=== PATIENT | female | born 1945 | race Caucasian/White ===

== ENCOUNTER 2018-09-28 18:48 | Observation (INO) | payer OTHER ==
--- NOTE | 2018-09-28 20:20 | RAD REPORT ---
EXAM DESCRIPTION: CT - Head Brain Wo Cont - 09/28/2018 8:14 pm CLINICAL HISTORY: Dizziness;Declining state Headache, drowsiness COMPARISON: No comparisons TECHNIQUE: All CT scans are performed using dose optimization technique as appropriate and may inclu de automated exposure control or mA/KV adjustment according to patient size. FINDINGS: No intracranial hemorrhage, hydrocephalus or extra-axial fluid collection.Moderate general ized brain atrophy is present with moderate periventricular and deep white matter chronic microvascul ar ischemic changes.No areas of brain edema or evidence of midline shift. The paranasal sinuses and mastoids are clear. The calvarium is intact. IMPRESSION: No acute intracranial abnormality.
--- NOTE | 2018-09-28 20:27 | RAD REPORT ---
EXAM DESCRIPTION: RAD - Chest Single View - 09/28/2018 8:21 pm CLINICAL HISTORY: COUGH Chest pain. COMPARISON: No comparisons FINDINGS: Portable technique limits examination quality. The lungs are emphysematous but grossly clear. The heart is normal in size. No displaced fractures.Ce rvical hardware plate is noted. IMPRESSION: No acute intrathoracic process suspected.
[2018-09-28 20:49] LABS: Absolute Lymphocytes (CBC) 2.2 K/uL (0.7-4.9); Absolute Monocytes 0.6 K/uL (0.1-1.3); Absolute Neutrophil 7.5 K/uL (1.8-8.0); Basophils % 1.1 % (0-1.3); Eosinophils % 1.4 % (0-4.4); Hematocrit 42.8 % (36.0-45.0); Lymphocytes % 20.9 % (15.3-44.8); MPV 8.6 fL (7.6-11.3); RBC Red Blood Cell Count 4.99 M/uL (3.86-4.86)
[2018-09-28 20:50] LABS: Protime INR 1.02
[2018-09-28] MEDS ORDERED: FOLIC ACID 5 MG/ML VIAL ONE (20:52)
[2018-09-28] MEDS ORDERED: NA CHLORIDE 0.9% 500 ML ONE (20:52)
[2018-09-28 21:05] LABS: ALT/SGPT 23 U/L (12-78); AST/SGOT 21 U/L (15-37); Albumin 4.2 g/dL (3.4-5.0); Alkaline Phosphatase 176 U/L (45-117); BUN Blood Urea Nitrogen 24 mg/dL (7-18); Bicarbonate 27 mmol/L (21-32); Bilirubin Direct 0.1 mg/dL (0-0.2); Bilirubin Total 0.5 mg/dL (0.2-1.0); Glucose Level 99 mg/dL (74-106); Magnesium 2.3 mg/dL (1.8-2.4); NT PRO-BNP 84 pg/mL (<450); Potassium 3.7 mmol/L (3.5-5.1); Protein, Total 8.4 g/dL (6.4-8.2); Sodium Level 138 mmol/L (136-145); Troponin (Emerg Dept Use Only) < 0.02 ng/mL (0.0-0.045)
--- NOTE | 2018-09-28 21:34 | EDPHYS ---
Physician Documentation [facility] Name: Chana Charlton Age: 73 yrs Sex: Female : 1945 Arrival Date: 09/28/2018 Time: 19:01 Bed 4 Private MD: ED Physician Musa Irene HPI: 09/28 20:01 This 73 yrs old Female presents to ER via EMS with complaints of ams, stewart confused. 20:01 The patient presents with confusion. Onset: The symptoms/episode began/occurred 2 stewart day(s) ago. Possible causes: CVA or TIA, low blood sugar, unknown. Associated signs and symptoms: The patient has no apparent associated signs or symptoms. Current symptoms: In the emergency department the patient's symptoms have improved, mildly. Historical: - Allergies: 19:21 PENICILLINS; iw - Home Meds: 19:21 None [Active]; iw - PMHx: 19:21 None; iw - PSHx: 19:21 Appendectomy; colon resection (ulcers); iw - Immunization history:: Adult Immunizations not up to date. - Social history:: Smoking status: Patient/guardian denies using tobacco. - Ebola Screening: : Patient negative for fever greater than or equal to 101.5 degrees Fahrenheit, and additional compatible Ebola Virus Disease symptoms Patient denies exposure to infectious person Patient denies travel to an Ebola-affected area in the 21 days before illness onset No symptoms or risks identified at this time. - Family history:: not pertinent. ROS: 20:01 Constitutional: Negative for fever, chills, and weight loss, Eyes: Negative for injury, stewart pain, redness, and discharge, ENT: Negative for injury, pain, and discharge, Neck: Negative for injury, pain, and swelling, Cardiovascular: Negative for chest pain, palpitations, and edema, Respiratory: Negative for shortness of breath, cough, wheezing, and pleuritic chest pain, Abdomen/GI: Negative for abdominal pain, nausea, vomiting, diarrhea, and constipation, Back: Negative for injury and pain, : Negative for injury, bleeding, discharge, and swelling, MS/Extremity: Negative for injury and deformity, Skin: Negative for injury, rash, and discoloration, Psych: Negative for depression, anxiety, suicide ideation, homicidal ideation, and hallucinations, Allergy/Immunology: Negative for hives, rash, and allergies, Endocrine: Negative for neck swelling, polydipsia, polyuria, polyphagia, and marked weight changes, Hematologic/Lymphatic: Negative for swollen nodes, abnormal bleeding, and unusual bruising. 20:01 Neuro: Positive for altered mental status, weakness. Exam: 20:01 Constitutional: This is a well developed, well nourished patient who is awake, alert, stewart and in no acute distress. Head/Face: Normocephalic, atraumatic. Eyes: Pupils equal round and reactive to light, extra-ocular motions intact. Lids and lashes normal. Conjunctiva and sclera are non-icteric and not injected. Cornea within normal limits. Periorbital areas with no swelling, redness, or edema. ENT: Nares patent. No nasal discharge, no septal abnormalities noted. Tympanic membranes are normal and external auditory canals are clear. Oropharynx with no redness, swelling, or masses, exudates, or evidence of obstruction, uvula midline. Mucous membranes moist. Neck: Trachea midline, no thyromegaly or masses palpated, and no cervical lymphadenopathy. Supple, full range of motion without nuchal rigidity, or vertebral point tenderness. No Meningismus. Chest/axilla: Normal chest wall appearance and motion. Nontender with no deformity. No lesions are appreciated. Cardiovascular: Regular rate and rhythm with a normal S1 and S2. No gallops, murmurs, or rubs. Normal PMI, no JVD. No pulse deficits. Respiratory: Lungs have equal breath sounds bilaterally, clear to auscultation and percussion. No rales, rhonchi or wheezes noted. No increased work of breathing, no retractions or nasal flaring. Abdomen/GI: Soft, non-tender, with normal bowel sounds. No distension or tympany. No guarding or rebound. No evidence of tenderness throughout. Back: No spinal tenderness. No costovertebral tenderness. Full range of motion. Female : Normal external genitalia. Skin: Warm, dry with normal turgor. Normal color with no rashes, no lesions, and no evidence of cellulitis. MS/ Extremity: Pulses equal, no cyanosis. Neurovascular intact. Full, normal range of motion. Neuro: Awake and alert, GCS 15, oriented to person, place, time, and situation. Cranial nerves II-XII grossly intact. Motor strength 5/5 in all extremities. Sensory grossly intact. Cerebellar exam normal. Normal gait. Psych: Awake, alert, with orientation to person, place and time. Behavior, mood, and affect are within normal limits. Vital Signs: 19:21 BP 188 / 83; Pulse 67; Resp 16; Temp 97.6(TE); Pulse Ox 100% on R/A; Pain 0/10; iw 20:20 BP 184 / 71; Pulse 60; Resp 18; Pulse Ox 100% on R/A; aj1 21:20 BP 171 / 91; Pulse 57; Resp 18; Pulse Ox 100% on R/A; aj1 22:17 BP 182 / 72; Pulse 56; Resp 16; Pulse Ox 100% on R/A; aj1 22:32 BP 185 / 72; Pulse 59; Resp 17; Temp 97.2(O); Pulse Ox 100% on R/A; Pain 0/10; ed1 NIH Stroke Scale Scores: 20:01 NIHSS Score: 0 stewart MDM: 19:32 Patient medically screened. [facility] 20:05 Data reviewed: vital signs, nurses notes, lab test result(s), EKG, radiologic studies, [facility] CT scan, plain films. 09/28 20:01 Order name: Basic Metabolic Panel [facility] 09/28 20:01 Order name: CBC with Diff [facility] 09/28 20:01 Order name: LFT's [facility] 09/28 20:01 Order name: Magnesium; Complete Time: 21:19 [facility] 09/28 20:01 Order name: NT PRO-BNP; Complete Time: 21:19 [facility] 09/28 20:01 Order name: PT-INR; Complete Time: 21:19 [facility] 09/28 20:01 Order name: Troponin (emerg Dept Use Only); Complete Time: 21:19 [facility] 09/28 20:01 Order name: XRAY Chest (1 view); Complete Time: 21:19 [facility] 09/28 20:01 Order name: CT Head Brain wo Cont; Complete Time: 21:19 [facility] 09/28 20:01 Order name: Urine Culture [facility] 09/28 20:01 Order name: Basic Metabolic Panel; Complete Time: 21:19 EDMS 09/28 20:01 Order name: CBC with Automated Diff; Complete Time: 21:19 EDHI 09/28 20:01 Order name: Liver (Hepatic) Function; Complete Time: 21:19 EDMS 09/28 22:03 Order name: Urine Dipstick--Ancillary (enter results) 2 09/28 20:01 Order name: EKG; Complete Time: 20:02 [facility] 09/28 20:01 Order name: Cardiac monitoring; Complete Time: 20:37 [facility] 09/28 20:01 Order name: EKG - Nurse/Tech; Complete Time: 21:26 [facility] 09/28 20:01 Order name: IV Saline Lock; Complete Time: 20:38 [facility] 09/28 20:01 Order name: Labs collected and sent; Complete Time: 20:38 [facility] 09/28 20:01 Order name: O2 Per Protocol; Complete Time: 20:38 [facility] 09/28 20:01 Order name: O2 Sat Monitoring; Complete Time: 20:38 [facility] Administered Medications: 20:42 Drug: NS 0.9% 500 ml Route: IV; Rate: bolus; Site: left antecubital; aj1 22:19 Follow up: IV Status: Completed infusion; IV Intake: 500ml aj 20:43 Drug: foLIC Acid 1 mg Route: IVPB; Site: left antecubital; aj1 22:19 Follow up: IV Status: Completed infusion aj1 21:29 Drug: Aspirin 162 mg Route: PO; aj1 22:19 Follow up: Response: No adverse reaction aj Disposition: 09/28/18 21:33 Hospitalization ordered by Jonathan Chadwick for Observation. Preliminary diagnosis are Altered mental status, unspecified, Dementia in other diseases classified elsewhere. - Bed requested for Telemetry/MedSurg (observation). - Status is Observation. ed1 - Condition is Stable. - Problem is new. - Symptoms have improved. UTI on Admission? No NIH Stroke Scale - NIH Stroke Score Date: 09/28/2018 Time: 20:01 Total Score = 0 1a. Level of Consciousness (LOC) - 0(Alert) 1b. Level of Consciousness (LOC) (Year \T\ Age) - 0(Both) 1c. LOC Commands (Open \T\ Closes Eyes/Oceanic Sciences Professor) - 0(Both) 2. Best Gaze (Lateral Gaze Paresis) - 0(Normal) 3. Visual Field Loss - 0(No visual loss) 4. Facial Palsy - 0(Normal) 5a. Left Arm: Motor (10-second hold) - 0(No drift) 5b. Right Arm: Motor (10-second hold) - 0(No drift) 6a. Left Leg: Motor (5-second hold - always test supine) - 0(No drift) 6b. Right Leg: Motor (5-second hold - always test supine) - 0(No drift) 7. Limb Ataxia (finger/nose \T\ heel/chand - test with eyes open) - 0(Absent) 8. Sensory Loss (pinprick arms/legs/face) - 0(Normal) 9. Best Language: Aphasia (description/naming/reading) - 0(No aphasia) 10. Dysarthria (speech clarity - read or repeat words) - 0(Normal) 11. Extinction and Inattention (visual/tactile/auditory/spatial/personal) - 0(No abnormality) Initials: stewart Signatures: Dispatcher [employer] EDMS Kita Ryan RN RN aj1 Musa Irene MD MD cha Williams, Irene, RN RN iw Magi Dai RN RN ed1 Cha Glover RN RN cg Corrections: (The following items were deleted from the chart) 22:11 21:33 Hospitalization Ordered by Jonathan Chadwick MD for Observation. Preliminary stewart diagnosis is Altered mental status, unspecified. Bed requested for Telemetry/MedSurg (observation). Status is Observation. Condition is Stable. Problem is new. Symptoms have improved. UTI on Admission? No. stewart 22:29 22:11 09/28/2018 21:33 Hospitalization Ordered by Jonathan Chadwick MD for cg Observation. Preliminary diagnosis is Altered mental status, unspecified; Dementia in other diseases classified elsewhere. Bed requested for Telemetry/MedSurg (observation). Status is Observation. Condition is Stable. Problem is new. Symptoms have improved. UTI on Admission? No. stewart 23:16 22:29 09/28/2018 21:33 Hospitalization Ordered by Jonathan Chadwick MD for ed1 Observation. Preliminary diagnosis is Altered mental status, unspecified; Dementia in other diseases classified elsewhere. Bed requested for Telemetry/MedSurg (observation). Status is Observation. Condition is Stable. Problem is new. Symptoms have improved. UTI on Admission? No. cg
--- NOTE | 2018-09-28 21:34 | ER ---
Nurse's Notes [facility] Name: Chana Charlton Age: 73 yrs Sex: Female : 1945 Arrival Date: 09/28/2018 Time: 19:01 Bed 4 Private MD: Diagnosis: Altered mental status, unspecified;Dementia in other diseases classified elsewhere Presentation: 09/28 19:14 Presenting complaint: EMS states: pt was found to be lost in [place], pt thought she iw was driving herself to the vet clinic to take her dogs to get shots, pt was confused about what year it was and tried to enter [address] office because she thought it was the vet clinic. Pt states she lives in [place], [place], with her 2 dogs and cat, was taking her dogs to the vet and it was closed so she thought she could drive over to the next town and find an open clinic, pt states she has one daughter named Katelynn Irizarry , her PCP is Dr. Velázquez in [facility] , daughter and PCP have been contacted by Mental Health deputy, no response from either. Pt is A\T\OX 2 (person and place) pt confused about time. Transition of care: patient was not received from another setting of care. Onset of symptoms was September 28, 2018. Risk Assessment: Do you want to hurt yourself or someone else? Patient reports no desire to harm self or others. Initial Sepsis Screen: Does the patient meet any 2 criteria? No. Patient's initial sepsis screen is negative. Does the patient have a suspected source of infection? No. Patient's initial sepsis screen is negative. Care prior to arrival: None. 19:14 Method Of Arrival: EMS: [facility] iw 19:14 Acuity: STEF 3 iw Historical: - Allergies: 19:21 PENICILLINS; iw - Home Meds: 19:21 None [Active]; iw - PMHx: 19:21 None; iw - PSHx: 19:21 Appendectomy; colon resection (ulcers); iw - Immunization history:: Adult Immunizations not up to date. - Social history:: Smoking status: Patient/guardian denies using tobacco. - Ebola Screening: : Patient negative for fever greater than or equal to 101.5 degrees Fahrenheit, and additional compatible Ebola Virus Disease symptoms Patient denies exposure to infectious person Patient denies travel to an Ebola-affected area in the 21 days before illness onset No symptoms or risks identified at this time. - Family history:: not pertinent. Screenin:18 Abuse screen: Denies threats or abuse. Denies injuries from another. Nutritional aj1 screening: No deficits noted. Tuberculosis screening: No symptoms or risk factors identified. 22:33 Fall Risk None identified. ed1 Assessment: 19:18 General: Appears in no apparent distress. comfortable, Behavior is calm, cooperative, aj1 appropriate for age. Pain: Denies pain. Neuro: Level of Consciousness is awake, alert, obeys commands, Oriented to person, place, time, situation, Patient states that she is not sure what year it is, but is able to tell me that Nasir Medina is president. Calciner Operator Helper are equal bilaterally Moves all extremities. Full function Gait is steady, Speech is normal, Facial symmetry appears normal. Cardiovascular: Patient's skin is warm and dry. Respiratory: Airway is patent Respiratory effort is even, unlabored, Respiratory pattern is regular, symmetrical. GI: No signs and/or symptoms were reported involving the gastrointestinal system. : No signs and/or symptoms were reported regarding the genitourinary system. EENT: No signs and/or symptoms were reported regarding the EENT system. Derm: No signs and/or symptoms reported regarding the dermatologic system. Skin is pink, warm \T\ dry. normal. Musculoskeletal: No signs and/or symptoms reported regarding the musculoskeletal system. Circulation, motion, and sensation intact. 20:15 Reassessment: Patient appears in no apparent distress at this time. No changes from aj1 previously documented assessment. Patient and/or family updated on plan of care and expected duration. Pain level reassessed. 21:15 Reassessment: Patient and/or family updated on plan of care and expected duration. Pain aj1 level reassessed. General: Appears in no apparent distress. comfortable, Behavior is calm, cooperative, appropriate for age. Pain: Denies pain. Neuro: Level of Consciousness is awake, alert, obeys commands, Oriented to person, place, situation, Moves all extremities. Full function Speech is normal. Cardiovascular: Patient's skin is warm and dry. Respiratory: Airway is patent Respiratory effort is even, unlabored, Respiratory pattern is regular, symmetrical. Derm: No signs and/or symptoms reported regarding the dermatologic system. Skin is pink, warm \T\ dry. normal. Musculoskeletal: No signs and/or symptoms reported regarding the musculoskeletal system. Circulation, motion, and sensation intact. 22:16 Reassessment: Patient appears in no apparent distress at this time. No changes from aj1 previously documented assessment. Patient and/or family updated on plan of care and expected duration. Pain level reassessed. 22:32 Reassessment: Patient appears in no apparent distress at this time. Patient and/or ed1 family updated on plan of care and expected duration. Pain level reassessed. Patient denies pain at this time. Neuro: Level of Consciousness is awake, alert, obeys commands, Oriented to person, situation. Respiratory: Airway is patent Respiratory effort is even, unlabored, Respiratory pattern is regular, symmetrical. 22:34 General: Spoke with patients daughter Katelynn Irizarry on the phone. Contact number ed1 . She stated that the patient has dementia and has become increasingly confused over the past few weeks. Pt has wondered from home but has never traveled this far.. Vital Signs: 19:21 BP 188 / 83; Pulse 67; Resp 16; Temp 97.6(TE); Pulse Ox 100% on R/A; Pain 0/10; iw 20:20 BP 184 / 71; Pulse 60; Resp 18; Pulse Ox 100% on R/A; aj1 21:20 BP 171 / 91; Pulse 57; Resp 18; Pulse Ox 100% on R/A; aj1 22:17 BP 182 / 72; Pulse 56; Resp 16; Pulse Ox 100% on R/A; aj1 22:32 BP 185 / 72; Pulse 59; Resp 17; Temp 97.2(O); Pulse Ox 100% on R/A; Pain 0/10; ed1 NIH Stroke Scale Scores: 20:01 NIHSS Score: 0 stewart ED Course: 19:01 Patient arrived in ED. bb 19:18 Kita Ryan, RN is Primary Nurse. aj1 19:18 Patient has correct armband on for positive identification. Bed in low position. Call aj1 light in reach. Side rails up X 1. 19:18 No provider procedures requiring assistance completed. aj1 19:20 Triage completed. iw 19:21 Arm band placed on. iw 19:32 Musa Irene MD is Attending Physician. stewart 20:15 CT Head Brain wo Cont In Process Unspecified. EDMS 20:22 XRAY Chest (1 view) In Process Unspecified. EDMS 21:24 Jonathan Chadwick MD is Hospitalizing Provider. stewart 23:16 Patient admitted, IV remains in place. intact, No redness/swelling at site. ed1 Administered Medications: 20:42 Drug: NS 0.9% 500 ml Route: IV; Rate: bolus; Site: left antecubital; aj1 22:19 Follow up: IV Status: Completed infusion; IV Intake: 500ml aj1 20:43 Drug: foLIC Acid 1 mg Route: IVPB; Site: left antecubital; aj1 22:19 Follow up: IV Status: Completed infusion aj1 21:29 Drug: Aspirin 162 mg Route: PO; aj1 22:19 Follow up: Response: No adverse reaction aj1 Intake: 22:19 IV: 500ml; Total: 500ml. aj1 Outcome: 21:33 Decision to Hospitalize by Provider. stewart 23:16 Admitted to Tele accompanied by tech, via wheelchair, room 404, with chart, Report ed1 called to KENYA Cha 23:16 Condition: good 23:16 Discharge instructions given to patient, family, Instructed on the need for admit, Demonstrated understanding of instructions. 23:16 Patient left the ED. ed1 NIH Stroke Scale - NIH Stroke Score Date: 09/28/2018 Time: 20:01 Total Score = 0 1a. Level of Consciousness (LOC) - 0(Alert) 1b. Level of Consciousness (LOC) (Year \T\ Age) - 0(Both) 1c. LOC Commands (Open \T\ Closes Eyes/Gas Turbine Mechanic) - 0(Both) 2. Best Gaze (Lateral Gaze Paresis) - 0(Normal) 3. Visual Field Loss - 0(No visual loss) 4. Facial Palsy - 0(Normal) 5a. Left Arm: Motor (10-second hold) - 0(No drift) 5b. Right Arm: Motor (10-second hold) - 0(No drift) 6a. Left Leg: Motor (5-second hold - always test supine) - 0(No drift) 6b. Right Leg: Motor (5-second hold - always test supine) - 0(No drift) 7. Limb Ataxia (finger/nose \T\ heel/chand - test with eyes open) - 0(Absent) 8. Sensory Loss (pinprick arms/legs/face) - 0(Normal) 9. Best Language: Aphasia (description/naming/reading) - 0(No aphasia) 10. Dysarthria (speech clarity - read or repeat words) - 0(Normal) 11. Extinction and Inattention (visual/tactile/auditory/spatial/personal) - 0(No abnormality) Initials: stewart Signatures: Dispatcher [employer] EDMS Kita Ryan RN RN aj1 Musa Irene MD MD cha Ballard, Brenda, RN RN Jennie Olmedo RN RN iw Riggs, Erika, RN RN ed1 Corrections: (The following items were deleted from the chart) 20:16 19:18 Neuro: Level of Consciousness is awake, alert, obeys commands, Oriented aj1 to person, place, time, situation, Calciner Operator Helper are equal bilaterally Moves all extremities. Full function Gait is steady, Speech is normal, Facial symmetry appears normal, aj1
[2018-09-28] MEDS ORDERED: ASPIRIN 81 MG CHEWABLE TABLET ONE (21:40)
[2018-09-28 22:11] LABS: Urine Blood NEGATIVE (NEG); Urine Glucose NEGATIVE (NEG); Urine Protein NEGATIVE (NEG); Urine Specific Gravity 1.015 (1.005-1.030); Urine pH 5.5 (5.0-7.0)
--- NOTE | 2018-09-28 22:22 | P.HP ---
Certification for Inpatient Patient admitted to: Observation With expected LOS: <2 Midnights Practitioner: I am a practitioner with admitting privileges, knowledge of patient current condition, hospital course, and medical plan of care. Services: Services provided to patient in accordance with Admission requirements found in Title 42 Section 412.3 of the Code of Federal Regulations Patient History Date of Service: 09/28/18 Reason for admission: acute encephalopathy History of Present Illness: Ms Charlton is a 73 years old woman who lives in [place], [place]. She was found in [place], about to enter to a [employer] office, the patient thought that was in a [facility] clinic. She was confused. EMS was called, and she was transferred to ER for evaluation. The patient remained confused, she only know who is the president, but not place and date. No neurologic focal deficit noted. Lab work unremarkable. CT head shows no acute abnormalities. Later, her daughter was contacted, and she said that the patient has history of Dementia and has had confusion episodes in the past, and lately and more frequent. Home medications list reviewed: Yes - Past Medical/Surgical History -: HTN -: Dementia Past Surgical History: Unable to obtain - Family History Family History: Reviewed- Non-Contributory - Social History Smoking Status: Never smoker CD- Drugs: No Place of Residence: Home Review of Systems 10-point ROS is otherwise unremarkable Physical Examination - Physical Exam General: Alert, In no apparent distress, Oriented x1 HEENT: Atraumatic, PERRLA, Mucous membr. moist/pink, EOMI, Sclerae nonicteric Neck: Supple, 2+ carotid pulse no bruit, No LAD, Without JVD or thyroid abnormality Respiratory: Clear to auscultation bilaterally, Normal air movement Cardiovascular: Regular rate/rhythm, Normal S1 S2 Gastrointestinal: Normal bowel sounds, No tenderness Musculoskeletal: No tenderness Integumentary: No rashes Neurological: Normal speech, Normal strength at 5/5 x4 extr, Normal tone, Normal affect Lymphatics: No axilla or inguinal lymphadenopathy - Studies Laboratory Data (last 24 hrs) 09/28/18 20:36: PT 12.0, INR 1.02 09/28/18 20:36: WBC 10.6, Hgb 14.0, Hct 42.8, Plt Count 335 09/28/18 20:36: Sodium 138, Potassium 3.7, BUN 24 H, Creatinine 0.60, Glucose 99 , Magnesium 2.3, Total Bilirubin 0.5, AST 21, ALT 23, Alkaline Phosphatase 176 H Assessment and Plan - Problems (Diagnosis) (1) Acute encephalopathy Current Visit: Yes Status: Acute (2) Dementia Current Visit: Yes Status: Acute Qualifiers: Dementia type: unspecified type Dementia behavioral disturbance: with behavioral disturbance Qualified Code(s): F03.91 - Unspecified dementia with behavioral disturbance (3) HTN (hypertension) Current Visit: Yes Status: Acute Qualifiers: Hypertension type: essential hypertension Qualified Code(s): I10 - Essential (primary) hypertension - Plan Will admit the patient under observation, this is confusion episode is most likely related to progression of her dementia. Will order MRI of the head just to make sure R/O vascular event on top of that. - Advance Directives Does patient have a Living Will: No Does patient have a Durable POA for Healthcare: No - Code Status/Comfort Care Code Status Assessed: Yes Code Status: Full Code
[2018-09-29] MEDS ORDERED: HYDRALAZINE HCL 20 MG/ML VIAL IV PRN (00:14)
[2018-09-29] MEDS ORDERED: ONDANSETRON 4 MG/2 ML VIAL IV PRN (00:14)
[2018-09-29] MEDS ORDERED: HYDRALAZINE HCL 20 MG/ML VIAL IV ONE (01:10)
[2018-09-29 05:55] LABS: Urine Appearance CLEAR; Urine Bilirubin NEGATIVE (NEG); Urine Blood NEGATIVE (NEG); Urine Color YELLOW; Urine Glucose NEGATIVE (NEG); Urine Protein NEGATIVE (NEG)
[2018-09-29 06:04] LABS: Urine Microscopic Reflex ORDER UMIC
[2018-09-29 06:13] LABS: Urine Bacteria <20 /HPF (<20); Urine Culture Reflex Order NOT NEEDED; Urine RBC NONE SEEN /HPF (NONE SEEN)
--- NOTE | 2018-09-29 08:28 | EKG ---
Test Date: 2018-09-28 Test Time: 21:04:26 Regional Engineer: JYOTI MEASUREMENT RESULTS: Intervals: Rate: 56 IL: 176 QRSD: 82 QT: 460 QTc: 443 [place]: P: 43 IL: 176 QRS: 28 T: 29 INTERPRETIVE STATEMENTS: Sinus bradycardia Otherwise normal ECG No previous ECG available for comparison Electronically Signed On 09-29-18 08:27:34 CDT by Jonny Duong
[2018-09-29] MEDS ORDERED: ENOXAPARIN 40 MG/0.4 ML SQ SCH (09:00)
[2018-09-29] MEDS ORDERED: THIAMINE HCL 100 MG TABLET PO SCH (09:00)
[2018-09-29] MEDS ORDERED: CYANOCOBALAMIN 1,000 MCG TAB PO SCH (09:00)
--- NOTE | 2018-09-29 09:18 | RAD REPORT ---
EXAM DESCRIPTION: - CP - 09/29/2018 8:53 am CLINICAL HISTORY: confusion, hx of dementia Headache, drowsiness COMPARISON: No comparisons TECHNIQUE: Real-time sonographic evaluation of both carotid systems was performed. Doppler interroga tion was performed with waveform tracing bilaterally. FINDINGS: Normal high resistance waveforms are noted in both external carotid arteries. The common c arotid arteries and internal carotid arteries show normal low resistance waveforms. Hard plaquing is seen in both carotid bulbs, slightly greater on the right. Peak systolic and end lico stolic velocity values and the ICA/CCA ratios are in the non-hemodynamically significant range. Antegrade flow seen in both vertebral arteries. IMPRESSION: Hard plaquing is seen in both carotid bulbs, greater on the right. No evidence of a hemodynamically significant stenosis.
--- NOTE | 2018-09-29 10:02 | RAD REPORT ---
EXAM DESCRIPTION: MRI - Brain Wo Cont - 09/29/2018 9:15 am CLINICAL HISTORY: Confusion Headache, drowsiness COMPARISON: Head Brain Wo Cont dated 09/28/2018; MRA Head Wo Cont dated 09/29/2018; MRA Neck W/Wo Cont dated 09/29/2018 TECHNIQUE: Multi-sequence, multiplanar MR imaging of the brain was performed without contrast. FINDINGS: No intracranial hemorrhage, hydrocephalus, or extra-axial fluid collection.Moderate conflu ent T2/FLAIR hyperintensity in the periventricular and deep white matter is present compatible with c hronic microvascular ischemic changes. No edema or shift of midline structures. No intracranial mass. DWI is negative for acute CVA. The midline structures are normally formed. Mastoid air cells and paranasal sinuses are clear. The patient refused post-contrast sequences at this time. IMPRESSION: Negative for acute CVA or other acute intracranial abnormality.
--- NOTE | 2018-09-29 10:05 | RAD REPORT ---
EXAM DESCRIPTION: MRI - MRA Head Wo Cont - 09/29/2018 9:51 am CLINICAL HISTORY: confusion, Hx of Dementia, rule CVA CVA, severe headache. COMPARISON: Head Brain Wo Cont dated 09/28/2018 FINDINGS: 3D noncontrast [id number] MR angiography of the [place] was performed. No aneurysm, flow-limiting stenosis or vascular malformation is seen. Forward flow seen in codominant vertebral arteries. The visualized dural venous sinuses appear patent. IMPRESSION: No significant flow abnormality of the [place] is identified.
--- NOTE | 2018-09-29 10:15 | RAD REPORT ---
EXAM DESCRIPTION: MRI - MRA Neck Without Cont - 09/29/2018 9:55 am CLINICAL HISTORY: cva, dementia, dizziness Headache, drowsiness, syncope COMPARISON: Carotid Artery Bilateral dated 09/29/2018 FINDINGS: The patient refused contrast injection, resulting in a very limited study. Within this rae itation, a high-grade carotid stenosis is not suspected. No vertebral artery occlusion suspected. IMPRESSION: Examination is of very limited diagnostic utility due to patient refusal of contrast mat erial. Grossly, no high-grade flow abnormality seen.
--- NOTE | 2018-09-29 10:36 | P.DS ---
Admission Date: 09/28/18 Discharge Date: 09/29/18 Primary Care Provider: Dr. Gallardo([place], [place]) Disposition: [facility] HOME/HOME HEALTH CARE Discharge Condition: GOOD Reason for Admission: acute encephalopathy Consultations: none Procedures: MRI Brain: FINDINGS: No intracranial hemorrhage, hydrocephalus, or extra-axial fluid collection.Moderate confluent T2/FLAIR hyperintensity in the periventricular and deep white matter is present compatible with chronic microvascular ischemic changes. No edema or shift of midline structures. No intracranial mass. DWI is negative for acute CVA. The midline structures are normally formed. Mastoid air cells and paranasal sinuses are clear. The patient refused post-contrast sequences at this time. IMPRESSION: Negative for acute CVA or other acute intracranial abnormality. MRA Brain: FINDINGS: 3D noncontrast [id number] MR angiography of the [place] was performed. No aneurysm, flow-limiting stenosis or vascular malformation is seen. Forward flow seen in codominant vertebral arteries. The visualized dural venous sinuses appear patent. IMPRESSION: No significant flow abnormality of the [place] is identified. MRA Neck: COMPARISON: Carotid Artery Bilateral dated 09/29/2018 FINDINGS: The patient refused contrast injection, resulting in a very limited study. Within this limitation, a high-grade carotid stenosis is not suspected. No vertebral artery occlusion suspected. IMPRESSION: Examination is of very limited diagnostic utility due to patient refusal of contrast material. Grossly, no high-grade flow abnormality seen. Carotid Doppler: FINDINGS: Normal high resistance waveforms are noted in both external carotid arteries. The common carotid arteries and internal carotid arteries show normal low resistance waveforms. Hard plaquing is seen in both carotid bulbs, slightly greater on the right. Peak systolic and end diastolic velocity values and the ICA/CCA ratios are in the non-hemodynamically significant range. Antegrade flow seen in both vertebral arteries. IMPRESSION: Hard plaquing is seen in both carotid bulbs, greater on the right. No evidence of a hemodynamically significant stenosis. ECHO: Obtain and results pending at discharge. Medical Problem List: Acute encephalopathy likely related to worsening dementia HTN Carotid arterial disease Brief History of Present Illness: 73-year-old female presented to emergency room with confusion. Patient with history of dementia. Patient lives near [place], [place] which is about 1-2 hours away. She apparently drove to this area and was found confused. Patient was brought in by EMS. Patient was admitted for further evaluation. Initial CT scan unremarkable. There has been reports of confusion in the past. Hospital Course: Patient presented with acute encephalopathy. Patient with history of confusion. Patient lives about 1-2 hr away. She apparently was found at a refinery office where she thought it was a vet office. She had her dogs with her. She appeared confused. Apparently daughter was in process of trying to find her and was discussing with her local core man to place a silver alert. Patient was evaluated in the emergency room. Initial CT scan unremarkable. Patient was monitored overnight. No deficits noted. MRI/MRA brain unremarkable. MRA neck unremarkable. lipid panel unremarkable. Some plaque noted in the carotid doppler but no significant stenosis. Blood pressures were elevated in her stay. Hypertension is likely new diagnosis. Medication was initiated. No evidence of CVA identified. Acute encephalopathy likely related to worsening dementia. Patient appears back to her baseline level. This was confirmed with daughter. At discharge patient will continue with aspirin 81 mg daily, folic acid 1 mg daily, vitamin-B 12 daily, and Norvasc 5 mg daily. Recommend to monitor blood pressure daily. Recommend to maintain blood pressures less 150/80. Further adjustment in medication may be required. This can be further addressed by her PCP. Case discussed with Neurology. Due to her dementia, will recommend no driving at discharge. Will make arrangements for home health and physical therapy at discharge. Will recommend a follow up with her PCP early next week to follow up this hospitalization and to further monitor. Safety precautions will be provided. Will recommend for the patient to follow up and establish care with Neurology as an outpatient to further address her condition. Dementia education will be provided. Will also recommend cardiology evaluation as an outpatient for possible Holter monitor and further evaluation. Patient has evidence of carotid arterial disease. No significant stenosis noted. Will recommend repeat carotid Doppler in 1 year to further address. Vital Signs/Physical Exam: Temp Pulse Resp BP Pulse Ox 97.6 F 60 16 116/55 L 97 09/29/18 04:00 09/29/18 04:00 09/29/18 04:00 09/29/18 04:00 09/29/18 04:00 General: Alert, In no apparent distress, Oriented x2, Cooperative HEENT: Atraumatic, Mucous membr. moist/pink Neck: Supple, No Thyromegaly Respiratory: Clear to auscultation bilaterally, Normal air movement Cardiovascular: Normal pulses, Regular rate/rhythm Gastrointestinal: Normal bowel sounds, Soft and benign, Non-distended, No tenderness, No masses, No rebound, No guarding Musculoskeletal: No erythema, No tenderness, No warmth Integumentary: No tenderness/swelling, No erythema, No warmth, No cyanosis Neurological: Normal speech, Normal strength at 5/5 x4 extr, Normal tone, Normal affect Laboratory Data at Discharge: WBC 10.6 K/uL (4.3-10.9) 09/28/18 20:36 Hgb 14.0 g/dL (12.0-15.0) 09/28/18 20:36 Hct 42.8 % (36.0-45.0) 09/28/18 20:36 Plt Count 335 K/uL (152-406) 09/28/18 20:36 PT 12.0 SECONDS (9.5-12.5) 09/28/18 20:36 INR 1.02 09/28/18 20:36 Sodium 138 mmol/L (136-145) 09/28/18 20:36 Potassium 3.7 mmol/L (3.5-5.1) 09/28/18 20:36 BUN 24 mg/dL (7-18) H 09/28/18 20:36 Creatinine 0.60 mg/dL (0.55-1.3) 09/28/18 20:36 Glucose 99 mg/dL (74-106) 09/28/18 20:36 Magnesium 2.3 mg/dL (1.8-2.4) 09/28/18 20:36 Total Bilirubin 0.5 mg/dL (0.2-1.0) 09/28/18 20:36 AST 21 U/L (15-37) 09/28/18 20:36 ALT 23 U/L (12-78) 09/28/18 20:36 Alkaline Phosphatase 176 U/L (45-117) H 09/28/18 20:36 Home Medications: Amlodipine [Norvasc*] 5 mg PO DAILY #30 tab 09/29/18 Aspirin [Aspirin EC 81 MG] 81 mg PO DAILY #90 tablet. 09/29/18 Cyanocobalamin [Vitamin B-12*] 1,000 mcg PO DAILY #30 tab 09/29/18 Folic Acid 1 mg PO DAILY #90 tablet 09/29/18 New Medications: Amlodipine [Norvasc*] 5 mg PO DAILY #30 tab Aspirin [Aspirin EC 81 MG] 81 mg PO DAILY #90 tablet.dr Mackbalamin [Vitamin B-12*] 1,000 mcg PO DAILY #30 tab Folic Acid 1 mg PO DAILY #90 tablet Patient Discharge Instructions: 1. Recommend follow up with her PCP in 1 week to follow up this hospitalization. 2. Patient presented with acute encephalopathy. Patient with history of confusion. Patient lives about 1-2 hr away. She apparently was found at a [employer] office where she thought it was a vet office. She had her dogs with her. She appeared confused. Apparently daughter was in process of trying to find her and was discussing with her local core man to place a silver alert. Patient was evaluated in the emergency room. Initial CT scan unremarkable. Patient was monitored overnight. No deficits noted. MRI/MRA brain unremarkable. MRA neck unremarkable. lipid panel unremarkable. Some plaque noted in the carotid doppler but no significant stenosis. Blood pressures were elevated in her stay. Hypertension is likely new diagnosis. Medication was initiated. No evidence of CVA identified. Acute encephalopathy likely related to worsening dementia. Patient appears back to her baseline level. This was confirmed with daughter. At discharge patient will continue with aspirin 81 mg daily, folic acid 1 mg daily, vitamin- B 12 daily, and Norvasc 5 mg daily. Recommend to monitor blood pressure daily. Recommend to maintain blood pressures less 150/80. Further adjustment in medication may be required. This can be further addressed by her PCP. Case discussed with Neurology. Due to her dementia, will recommend no driving at discharge. Will make arrangements for home health and physical therapy at discharge. Will recommend a follow up with her PCP early next week to follow up this hospitalization and to further monitor. Safety precautions will be provided. Will recommend for the patient to follow up and establish care with Neurology as an outpatient to further address her condition. Dementia education will be provided. Will also recommend cardiology evaluation as an outpatient for possible Holter monitor and further evaluation. 3. Patient has evidence of carotid arterial disease. No significant stenosis noted. Will recommend repeat carotid Doppler in 1 year to further address. Diet: AHA Activity: Fall precautions Time spent managing pt's care (in minutes): 55
[2018-09-29 11:40] LABS: Thyroid Stimulating Hormone 2.8 uIU/mL (0.360-3.740)
--- NOTE | 2018-09-29 16:00 | ECHO ---
HEIGHT: 4 ft 10 in WEIGHT: 125 lb 1 oz DATE OF STUDY: 09/29/[address]: Salinas Cabral DO 2-DIMENSIONAL: YES M.MODE: YES DOPPLER: YES COLOR FLOW: YES TDS: NO PORTABLE: NO DEFINITY: NO BUBBLE STUDY: NO DIAGNOSIS: CONFUSION, HISTORY DEMENTIA CARDIAC HISTORY: CATHERIZATION: NO SURGERY: NO PROSTHETIC VALVE: NO PACEMAKER: NO MEASUREMENTS (cm) DIASTOLIC (NORMALS) SYSTOLIC (NORMALS) IVSd 1.0 (0.6-1.2) LA Diam 3.1 (1.9-4.0) LVEF 75% LVIDd 3.0 (3.5-5.7) LVIDs 1.8 (2.0-3.5) %FS 42% LVPWd 1.0 (0.6-1.2) Ao Diam 2.5 (2.0-3.7) 2 DIMENSIONAL ASSESSMENT: RIGHT ATRIUM: NORMAL LEFT ATRIUM: NORMAL RIGHT VENTRICLE: NORMAL LEFT VENTRICLE: NORMAL TRICUSPID VALVE: NORMAL MITRAL VALVE: NORMAL PULMONIC VALVE: NORMAL AORTIC VALVE: MILD SCLEROSIS PERICARDIAL EFFUSION: NONE AORTIC ROOT: NORMAL LEFT VENTRICULAR WALL MOTION: NORMAL DOPPLER/COLOR FLOW: NO AORTIC STENOSIS OR AORTIC REGURGITATION. TRACE TRICUSPID REGURGITATION. NORMAL RIGHT VENTRICULAR SYSTOLIC PRESSURE. COMMENTS: NORMAL LEFT VENTRICULAR EJECTION FRACTION. AORTIC SCLEROSIS WITH NO AORTIC STENOSIS OR AORTIC REGURGITATION. TRACE TRICUSPID REGURGITATION. NORMAL RIGHT VENTRICULAR SYSTOLIC PRESSURE. TECHNOLOGIST: Georgette HUTCHINS
[2018-09-29] MEDS ORDERED: ATORVASTATIN 40 MG TAB PO SCH (21:00)
[2018-09-30] MEDS ORDERED: ASPIRIN EC 81 MG TAB PO SCH (09:00)
[2018-09-30] MEDS ORDERED: AMLODIPINE 5 MG TAB PO SCH (09:00)
== END 2018-09-29 14:01 | disposition home health service (06) ==
LOC: ER 18:48 → ERHOLD 22:30 → 4TH 23:04
PROVIDERS: ADMIT Internal Medicine; ATTEND Family Medicine
DX: G93.40 Encephalopathy, unspecified (principal); F03.91 Unspecified dementia, unspecified severity, with behavioral disturbance; I10 Essential (primary) hypertension; I65.23 Occlusion and stenosis of bilateral carotid arteries; I07.1 Rheumatic tricuspid insufficiency; R00.1 Bradycardia, unspecified; Z79.82 Long term (current) use of aspirin; Z79.899 Other long term (current) drug therapy
CPT/HCPCS: 96365; 93005; 93306; 87088; 85025; 87086; 80048; 36415; 83735; 85610; 80061; 80076; 84443; 81003; 84484; 84439; 82607; 83880; 70450; 71045; 93880; 70551; 70544; 70547; 97165 ×2; 99285; 96366; J0360; J1650; G0378 ×3; 81015